=== PATIENT | male | born 1975 | race Hispanic/Latino ===

== ENCOUNTER 2021-03-07 01:20 | Emergency (ER) | payer BC, OTHER ==
[2021-03-07 02:03] LABS: Bilirubin Negative (Negative); Blood, Urine Negative (Negative); Clarity Clear (Clear); Glucose, Urine (Dipstick) Normal (Negative); Ketone, Urine Negative (Negative); Leukocyte Negative Leu/uL (Negative); Nitrite Negative (Negative); Protein, Urine (Dipstick) 20 mg/dL (Neg-Trace); Specific Gravity, Urine 1.031 (1.002-1.036); Urobilinogen Normal mg/dL (Less than 2); pH, Urine 5.5 (5.0-9.0)
[2021-03-07] MEDS ORDERED: Ondansetron PF 4 MG/2 ML Vial ONE ×2 (03:33→05:02)
[2021-03-07] MEDS ORDERED: Morphine 4 MG/ML VIAL ONE (03:33)
[2021-03-07 03:38] LABS: #Eosinphils 0.1 thou/uL (0.0-0.7); #Lymphocytes 1.5 thou/uL (1.20-3.40); #Monocytes 0.8 thou/uL (0.11-0.59); #Neutrophils 11.7 thou/uL (1.40-6.50); %Eosinophils 0.4 % (0.0-10.0); %Lymphocytes 10.9 % (21.0-51.0); %Monocytes 5.6 % (0.0-10.0); %Neutrophils 83.1 % (42.0-75.0); Hemoglobin 16.4 g/dL (14.0-18.0); Mean Corpuscular HGB CONC 33.5 g/dL (32.0-36.0); Mean Corpuscular Volume 92.6 fL (78.0-98.0); Mean Platelet Volume 7.8 fL (7.4-10.4); Platelet Count 191 thou/uL (130-400); RBC Distribution Width 12.7 % (11.5-14.5); White Blood Cell (WBC) Count 14.1 thou/uL (4.8-10.8)
[2021-03-07 04:00] LABS: ALT (SGPT) 100 U/L (8-55); AST (SGOT) 38 U/L (5-34); Albumin 4.7 g/dL (3.5-5.0); Alkaline Phosphatase 95 U/L (40-110); Anion Gap 18 mmol/L (10-20); BUN (Urea Nitrogen) 15 mg/dL (8.9-20.6); Calc. Creatinine Clearance 0 mL/min (70-130); Calcium 9.8 mg/dL (7.8-10.44); Carbon Dioxide 21 mmol/L (22-29); Chloride 104 mmol/L (98-107); Globulin 3.6 g/dL (2.4-3.5); Glucose 138 mg/dL (70-105); Potassium 4.1 mmol/L (3.5-5.1); Protein, Total 8.3 g/dL (6.0-8.3); Sodium 139 mmol/L (136-145)
[2021-03-07] MEDS ORDERED: Ketorolac Tromethamine 30 MG/ML VIAL ONE (04:49)
== END 2021-03-07 06:06 | disposition home or self-care (01) ==
LOC: ERS 01:20
DX: N13.2 Hydronephrosis with renal and ureteral calculous obstruction (principal); M10.9 Gout, unspecified
CPT/HCPCS: 36415; 74176; 80053; 81003; 85025; 96374; 96375; 96376; J1885; J2270; J2405

== ENCOUNTER 2022-05-25 07:30 | Outpatient (CLI) | payer BC | END 2022-05-25 07:31 | disposition home or self-care (01) | LOC: BICULT 07:30 | PROVIDERS: ATTEND Internal Medicine Rheumatology | DX: R74.8 Abnormal levels of other serum enzymes (principal); K76.0 Fatty (change of) liver, not elsewhere classified; K83.8 Other specified diseases of biliary tract; Z90.49 Acquired absence of other specified parts of digestive tract | CPT/HCPCS: 76705 ==

== ENCOUNTER 2023-10-18 06:01 | Inpatient (IN) | payer BC ==
[2023-10-18 06:30] LABS: #Eosinphils 0.1 thou/uL (0.0-0.7); #Monocytes 1.7 thou/uL (0.11-0.59); #Neutrophils 18.1 thou/uL (1.40-6.50); %Basophils 0.2 % (0.0-1.0); %Eosinophils 0.2 % (0.0-10.0); %Lymphocytes 9.4 % (21.0-51.0); %Monocytes 7.5 % (0.0-10.0); %Neutrophils 82.2 % (42.0-75.0); Hematocrit 48.1 % (42.0-52.0); Hemoglobin 17.1 g/dL (14.0-18.0); Mean Corpuscular HGB CONC 35.6 g/dL (32.0-36.0); Mean Corpuscular Hemoglobin 32.6 pg (27.0-31.0); Mean Corpuscular Volume 91.6 fl (78.0-98.0); Platelet Count 174 10x3/uL (130-400); RBC Distribution Width 13.7 % (11.5-14.5); Red Blood Cell (RBC) Count 5.25 mill/uL (4.70-6.10)
[2023-10-18] MEDS ORDERED: Acetaminophen 325 MG TAB ONE (06:47)
[2023-10-18] MEDS ORDERED: Piperacillin/Tazobactam 4.5 GM VIAL ONE (06:47)
[2023-10-18] MEDS ORDERED: Sodium Chloride 0.9% 100 ML ONE (06:47)
[2023-10-18] MEDS ORDERED: Ketorolac Tromethamine 30 MG (1 mL) VIAL ONE (06:47)
[2023-10-18 07:04] LABS: ALT (SGPT) 40 U/L (8-55); AST (SGOT) 21 U/L (5-34); Albumin 4.2 g/dL (3.5-5.0); Alkaline Phosphatase 53 U/L (40-110); Anion Gap 16 mmol/L (10-20); BUN (Urea Nitrogen) 13 mg/dL (8.9-20.6); Bilirubin, Total 3.1 mg/dL (0.2-1.2); Calc. Creatinine Clearance 0 mL/min (70-130); Calcium 9.7 mg/dL (7.8-10.44); Carbon Dioxide 21 mmol/L (22-29); Chloride 103 mmol/L (98-107); Estimated GFR 80; Globulin 3.9 g/dL (2.4-3.5); Glucose 103 mg/dL (70-105); Potassium 3.8 mmol/L (3.5-5.1); Protein, Total 8.1 g/dL (6.0-8.3); Sodium 136 mmol/L (136-145)
[2023-10-18] MEDS ORDERED: Acetaminophen 650 MG Suppository PR PRN (08:42)
[2023-10-18] MEDS ORDERED: Ondansetron PF 4 MG/2 ML Vial IVP PRN (08:42)
[2023-10-18] MEDS ORDERED: Ondansetron ODT 4 MG TAB PO PRN (08:42)
[2023-10-18 10:28] VITALS: BMI 33.0
[2023-10-18] MEDS ORDERED: Iopamidol-370 76% 500 ML MDV (1 ML CHARGE) ONE (11:15)
[2023-10-18] MEDS ORDERED: Morphine 2 MG/ML VIAL SLOW IVP PRN (12:30)
[2023-10-18] MEDS: Piperacillin/Tazobactam 3.375 GM in Sodium Chloride 0.9% 100 ML IVPB SCH (12:40)
[2023-10-18] MEDS: Enoxaparin 40 MG (0.4 mL) SYRINGE SC SCH (12:40)
[2023-10-18] MEDS: Acetaminophen 325 MG TAB PO PRN (12:41)
[2023-10-18] MEDS: Morphine 4 MG/ML VIAL SLOW IVP PRN (12:58)
[2023-10-18] MEDS ORDERED: Piperacillin/Tazobactam 4.5 GM in Sodium Chloride 0.9% 100 ML IVPB SCH (14:00)
[2023-10-19 04:33] LABS: #Basophils 0.1 thou/uL (0.0-0.2); #Eosinphils 0.1 thou/uL (0.0-0.7); #Monocytes 1.5 thou/uL (0.11-0.59); #Neutrophils 11.6 thou/uL (1.40-6.50); %Basophils 0.3 % (0.0-1.0); %Eosinophils 0.7 % (0.0-10.0); %Lymphocytes 19.5 % (21.0-51.0); %Monocytes 9.2 % (0.0-10.0); %Neutrophils 69.7 % (42.0-75.0); Hematocrit 41.7 % (42.0-52.0); Hemoglobin 14.8 g/dL (14.0-18.0); Mean Corpuscular HGB CONC 35.5 g/dL (32.0-36.0); Mean Corpuscular Hemoglobin 32.5 pg (27.0-31.0); Mean Corpuscular Volume 91.4 fl (78.0-98.0); Platelet Count 155 10x3/uL (130-400); RBC Distribution Width 13.5 % (11.5-14.5); Red Blood Cell (RBC) Count 4.56 mill/uL (4.70-6.10); White Blood Cell (WBC) Count 16.7 10x3/uL (4.8-10.8)
[2023-10-19 05:02] LABS: Anion Gap 13 mmol/L (10-20); BUN (Urea Nitrogen) 11 mg/dL (8.9-20.6); Calc. Creatinine Clearance 114 mL/min (70-130); Calcium 8.9 mg/dL (7.8-10.44); Carbon Dioxide 23 mmol/L (22-29); Chloride 102 mmol/L (98-107); Estimated GFR 78; Glucose 82 mg/dL (70-105); Potassium 3.4 mmol/L (3.5-5.1); Sodium 135 mmol/L (136-145)
[2023-10-19 10:16] LABS: ALT (SGPT) 27 U/L (8-55); AST (SGOT) 15 U/L (5-34); Albumin 3.7 g/dL (3.5-5.0); Alkaline Phosphatase 50 U/L (40-110); Bilirubin, Direct 0.9 mg/dL (0.1-0.3); Bilirubin, Total 2.4 mg/dL (0.2-1.2)
[2023-10-19] MEDS: NS 0.9% w/ 40 MEQ KCL 1,000 ML IV SCH (11:24)
[2023-10-20 08:40] VITALS: BP 128/86; TEMP 97.6
[2023-10-21] MEDS ORDERED: FLU VACC QS2023-24(6MOS UP)/PF 60 MCG/0.5 ML SYRINGE IM ONE (09:00)
== END 2023-10-20 14:46 | disposition home or self-care (01) | DRG 872 ==
LOC: SUATTDRO 06:01 → ERS 06:01 → T4-B 08:06
PROVIDERS: ADMIT Family Medicine; ATTEND Internal Medicine
DX: A41.9 Sepsis, unspecified organism (principal); K57.20 Diverticulitis of large intestine with perforation and abscess without bleeding; M10.9 Gout, unspecified; E87.6 Hypokalemia; R31.9 Hematuria, unspecified; N20.0 Calculus of kidney; Z90.49 Acquired absence of other specified parts of digestive tract; Z79.899 Other long term (current) drug therapy
CPT/HCPCS: 36415; 74177; 80048; 80053; 80076; 83605; 85025; 87040; 93005; 96374; 96375; J1650; J1885; J2270; J2543; J3480; J3490; Q9967

== ENCOUNTER 2023-10-21 20:53 | Inpatient (IN) | payer BC ==
[~2023-10-21 20:53] MED LIST: Albumin 5% 0 ML ONE
[2023-10-21] MEDS ORDERED: fentaNYL PF 100 MCG/2 ML SYRINGE ONE ×3 (21:14→22:39)
[2023-10-21] MEDS ORDERED: PROPOFOL 20 ML ONE (21:14)
[2023-10-21] MEDS ORDERED: Ondansetron PF 4 MG/2 ML Vial ONE (21:48)
[2023-10-21] MEDS ORDERED: Lidocaine 1% PF 5 ML VIAL ONE (21:48)
[2023-10-21] MEDS ORDERED: Rocuronium Bromide 10 MG/ML (10ML VIAL) ONE (21:48)
[2023-10-21] MEDS ORDERED: Dexamethasone 20 MG/5 ML VIAL ONE (21:48)
[2023-10-21] MEDS ORDERED: Sevoflurane 250 ML INH ANEST BOTTLE ONE ×2 (22:21→22:39)
[2023-10-22] MEDS ORDERED: HYDROmorphone 2 MG/ML VIAL ONE (00:22)
[2023-10-22] MEDS ORDERED: SUGAMMADEX SODIUM 200 MG/2 ML VIAL ONE ×2 (00:26)
[2023-10-22] MEDS ORDERED: Promethazine HCl 25 MG/ML VIAL IM PRN ×2 (01:21→01:23)
[2023-10-22] MEDS ORDERED: Naloxone HCl 0.4 mg/ml Vial IV PRN (01:21)
[2023-10-22] MEDS ORDERED: diphenhydrAMINE 25 MG CAP PO PRN (01:21)
[2023-10-22] MEDS ORDERED: HYDROmorphone/PF 10 MG in Sodium Chloride 0.9% 99 ML IV PRN (01:21)
[2023-10-22] MEDS ORDERED: diphenhydrAMINE 50 MG/ML VIAL IM PRN (01:21)
[2023-10-22] MEDS ORDERED: diphenhydrAMINE 50 MG/ML VIAL IVP PRN (01:21)
[2023-10-22] MEDS ORDERED: Ondansetron HCl/PF 4 MG/2 ML Vial IVP PRN (01:23)
[2023-10-22] MEDS ORDERED: HYDROmorphone 2 MG/ML VIAL SLOW IVP PRN (01:23)
[2023-10-22] MEDS ORDERED: Communication Order-Pharmacy FS SCH (01:30)
[2023-10-22] MEDS ORDERED: fentaNYL 50 mcg/mL 1 mL Vial ONE ×2 (01:34→01:47)
[2023-10-22] MEDS ORDERED: D5 1/2 NS w/20 mEq KCL 1,000 ML IV SCH (01:45)
[2023-10-22] MEDS ORDERED: HYDROmorphone 0.5 MG/0.5 ML SYRINGE ONE (02:01)
[2023-10-22] MEDS: Piperacillin/Tazobactam 4.5 GM in Sodium Chloride 0.9% 100 ML IVPB SCH ×2 (03:25→08:31)
[2023-10-22] MEDS: D5 1/2 NS w/20 mEq KCL 1,000 ML IV SCH (03:45)
[2023-10-22 05:05] VITALS: BMI 33.3
[2023-10-22] MEDS ORDERED: Piperacillin/Tazobactam 4.5 GM in Sodium Chloride 0.9% 100 ML IVPB SCH (06:00)
[2023-10-22 06:16] LABS: #Monocytes 0.8 thou/uL (0.11-0.59); #Neutrophils 12.8 thou/uL (1.40-6.50); %Basophils 0.2 % (0.0-1.0); %Lymphocytes 8.4 % (21.0-51.0); %Monocytes 5.4 % (0.0-10.0); %Neutrophils 85.7 % (42.0-75.0); Hematocrit 43.3 % (42.0-52.0); Hemoglobin 15.1 g/dL (14.0-18.0); Mean Corpuscular HGB CONC 34.9 g/dL (32.0-36.0); Mean Corpuscular Hemoglobin 32.1 pg (27.0-31.0); Mean Corpuscular Volume 92.1 fl (78.0-98.0); Mean Platelet Volume 10.1 fL (7.4-10.4); Platelet Count 240 10x3/uL (130-400); RBC Distribution Width 13.2 % (11.5-14.5); White Blood Cell (WBC) Count 14.9 10x3/uL (4.8-10.8)
[2023-10-22 06:50] LABS: ALT (SGPT) 46 U/L (8-55); AST (SGOT) 34 U/L (5-34); Albumin 3.7 g/dL (3.5-5.0); Alkaline Phosphatase 48 U/L (40-110); Anion Gap 14 mmol/L (10-20); BUN (Urea Nitrogen) 12 mg/dL (8.9-20.6); Bilirubin, Total 1.1 mg/dL (0.2-1.2); Calc. Creatinine Clearance 126 mL/min (70-130); Carbon Dioxide 20 mmol/L (22-29); Chloride 106 mmol/L (98-107); Estimated GFR 91; Globulin 3.3 g/dL (2.4-3.5); Glucose 132 mg/dL (70-105); Potassium 4.3 mmol/L (3.5-5.1); Sodium 136 mmol/L (136-145)
[2023-10-22] MEDS: Ketorolac Tromethamine 30 MG (1 mL) VIAL IVP SCH (07:37)
[2023-10-22] MEDS: Albumin 25% 25 GM (100 mL) BOT IVPB SCH (07:38)
[2023-10-22] MEDS: Acetaminophen 500 MG TAB PO SCH (08:31)
[2023-10-22] MEDS: Pantoprazole 40 MG VIAL IVP SCH (08:31)
[2023-10-22] MEDS: FLU VACC QS2023-24(6MOS UP)/PF 60 MCG/0.5 ML SYRINGE IM ONE (08:32)
[2023-10-22] MEDS: Ondansetron PF 4 MG/2 ML Vial IVP PRN (16:00)
[2023-10-22] MEDS: fentaNYL 50 mcg/mL 1 mL Vial SLOW IVP SCH (16:35)
[2023-10-22] MEDS: Enoxaparin 40 MG (0.4 mL) SYRINGE SC SCH (21:18)
[2023-10-23 07:10] LABS: #Basophils 0.1 thou/uL (0.0-0.2); #Monocytes 0.8 thou/uL (0.11-0.59); #Neutrophils 13.2 thou/uL (1.40-6.50); %Basophils 0.3 % (0.0-1.0); %Eosinophils 0.1 % (0.0-10.0); %Neutrophils 80.8 % (42.0-75.0); Hematocrit 38.6 % (42.0-52.0); Hemoglobin 13.4 g/dL (14.0-18.0); Mean Corpuscular HGB CONC 34.7 g/dL (32.0-36.0); Mean Corpuscular Hemoglobin 32.1 pg (27.0-31.0); Mean Corpuscular Volume 92.3 fl (78.0-98.0); Platelet Count 202 10x3/uL (130-400); RBC Distribution Width 13.4 % (11.5-14.5); Red Blood Cell (RBC) Count 4.18 mill/uL (4.70-6.10); White Blood Cell (WBC) Count 16.3 10x3/uL (4.8-10.8)
[2023-10-23] MEDS ORDERED: Famotidine 20 MG TAB PO PRN (15:51)
[2023-10-23] MEDS: D5 1/2 NS w/20 mEq KCL 1,000 ML IV SCH (18:08)
[2023-10-25] MEDS: Calcium Carbonate 500 MG ChewTAB PO SCH (01:58)
[2023-10-25] MEDS: hydrALAZINE 20 MG/ML VIAL SLOW IVP PRN (04:33)
[2023-10-25] MEDS: D5 1/2 NS w/20 mEq KCL 1,000 ML IV SCH (12:45)
[2023-10-26] MEDS ORDERED: Non-Formulary Item 1 EACH (Omeprazole [Omeprazole] 20 MG Tablet.Dr) PO SCH (09:00)
[2023-10-26] MEDS: Milk Of Magnesia 30 ML UDCUP PO PRN (10:42)
[2023-10-26 12:48] LABS: #Eosinphils 0.2 thou/uL (0.0-0.7); #Neutrophils 10.9 thou/uL (1.40-6.50); %Basophils 0.3 % (0.0-1.0); %Eosinophils 1.5 % (0.0-10.0); %Monocytes 6.7 % (0.0-10.0); Hematocrit 35.5 % (42.0-52.0); Hemoglobin 12.7 g/dL (14.0-18.0); Mean Corpuscular HGB CONC 35.8 g/dL (32.0-36.0); Mean Corpuscular Hemoglobin 32.8 pg (27.0-31.0); Mean Corpuscular Volume 91.7 fl (78.0-98.0); Mean Platelet Volume 9.6 fL (7.4-10.4); Platelet Count 274 10x3/uL (130-400); RBC Distribution Width 13.6 % (11.5-14.5); Red Blood Cell (RBC) Count 3.87 mill/uL (4.70-6.10); White Blood Cell (WBC) Count 14.3 10x3/uL (4.8-10.8)
[2023-10-26] MEDS ORDERED: Morphine 4 MG/ML VIAL SLOW IVP PRN ×2 (17:15)
[2023-10-26] MEDS: D5 1/2 NS w/20 mEq KCL 1,000 ML IV SCH (18:43)
[2023-10-27] MEDS: Ketorolac Tromethamine 30 MG (1 mL) VIAL IVP PRN (08:29)
[2023-10-27] MEDS: Pantoprazole 40 MG VIAL IVP SCH (08:30)
[2023-10-27] MEDS ORDERED: GASTROGRAFIN 30 ML BOT ONE (15:18)
[2023-10-27] MEDS ORDERED: Iopamidol-370 76% 500 ML MDV (1 ML CHARGE) ONE (15:18)
[2023-10-28] MEDS ORDERED: Ondansetron PF 4 MG/2 ML Vial IVP PRN (09:45)
[2023-10-28 10:13] LABS: #Basophils 0.1 thou/uL (0.0-0.2); #Eosinphils 0.1 thou/uL (0.0-0.7); #Monocytes 0.9 thou/uL (0.11-0.59); #Neutrophils 10.2 thou/uL (1.40-6.50); %Basophils 0.6 % (0.0-1.0); %Lymphocytes 19.1 % (21.0-51.0); %Monocytes 6.4 % (0.0-10.0); Hemoglobin 13.8 g/dL (14.0-18.0); Mean Corpuscular HGB CONC 32.9 g/dL (32.0-36.0); Mean Corpuscular Hemoglobin 31.9 pg (27.0-31.0); Mean Corpuscular Volume 97.2 fl (78.0-98.0); Mean Platelet Volume 9.8 fL (7.4-10.4); Platelet Count 285 10x3/uL (130-400); RBC Distribution Width 13.9 % (11.5-14.5); Red Blood Cell (RBC) Count 4.32 mill/uL (4.70-6.10); White Blood Cell (WBC) Count 14.1 10x3/uL (4.8-10.8)
[2023-10-28] MEDS: Metoclopramide HCl 10 MG (2 mL) VIAL IVP SCH (10:17)
[2023-10-28 10:39] LABS: Phosphorus 2.9 mg/dL (2.3-4.7)
[2023-10-28 10:41] LABS: ALT (SGPT) 70 U/L (8-55); AST (SGOT) 54 U/L (5-34); Albumin 3.9 g/dL (3.5-5.0); Alkaline Phosphatase 70 U/L (40-110); Anion Gap 11 mmol/L (10-20); BUN (Urea Nitrogen) 14 mg/dL (8.9-20.6); Bilirubin, Total 1.2 mg/dL (0.2-1.2); Calc. Creatinine Clearance 123 mL/min (70-130); Calcium 9.2 mg/dL (7.8-10.44); Carbon Dioxide 25 mmol/L (22-29); Chloride 105 mmol/L (98-107); Estimated GFR 87; Globulin 3.8 g/dL (2.4-3.5); Glucose 96 mg/dL (70-105); Magnesium 2.5 mg/dL (1.6-2.6); Potassium 3.9 mmol/L (3.5-5.1); Protein, Total 7.7 g/dL (6.0-8.3); Sodium 137 mmol/L (136-145)
[2023-10-29] MEDS: Diazepam 5 MG TAB PO SCH (11:24)
[2023-10-29] MEDS: Metoclopramide HCl 10 MG (2 mL) VIAL IVP PRN (11:24)
[2023-10-29] MEDS: Diazepam 5 MG TAB PO PRN (20:32)
[2023-10-30] MEDS: Prochlorperazine Maleate 5 MG TAB PO PRN (04:54)
[2023-10-30 05:16] LABS: #Eosinphils 0.1 thou/uL (0.0-0.7); #Monocytes 0.7 thou/uL (0.11-0.59); #Neutrophils 4.8 thou/uL (1.40-6.50); %Basophils 0.3 % (0.0-1.0); %Eosinophils 1.5 % (0.0-10.0); %Monocytes 8.8 % (0.0-10.0); %Neutrophils 59.6 % (42.0-75.0); Hematocrit 36.5 % (42.0-52.0); Hemoglobin 12.5 g/dL (14.0-18.0); Mean Corpuscular HGB CONC 34.2 g/dL (32.0-36.0); Mean Corpuscular Hemoglobin 31.7 pg (27.0-31.0); Mean Corpuscular Volume 92.6 fl (78.0-98.0); Mean Platelet Volume 10.1 fL (7.4-10.4); Platelet Count 316 10x3/uL (130-400); RBC Distribution Width 13.3 % (11.5-14.5); Red Blood Cell (RBC) Count 3.94 mill/uL (4.70-6.10)
[2023-10-30 05:43] LABS: ALT (SGPT) 145 U/L (8-55); AST (SGOT) 80 U/L (5-34); Albumin 3.8 g/dL (3.5-5.0); Alkaline Phosphatase 66 U/L (40-110); Anion Gap 10 mmol/L (10-20); BUN (Urea Nitrogen) 12 mg/dL (8.9-20.6); Bilirubin, Total 1.2 mg/dL (0.2-1.2); Calc. Creatinine Clearance 134 mL/min (70-130); Calcium 8.9 mg/dL (7.8-10.44); Carbon Dioxide 23 mmol/L (22-29); Chloride 105 mmol/L (98-107); Estimated GFR 98; Globulin 3.3 g/dL (2.4-3.5); Glucose 98 mg/dL (70-105); Magnesium 2.3 mg/dL (1.6-2.6); Phosphorus 3.3 mg/dL (2.3-4.7); Protein, Total 7.1 g/dL (6.0-8.3); Sodium 134 mmol/L (136-145)
[2023-10-30] MEDS: Metamucil PACK PO SCH (09:11)
[2023-10-30] MEDS: Simethicone Chewable 80 MG TAB PO PRN (18:16)
[2023-10-31 17:24] VITALS: BP 129/90; TEMP 98.5
== END 2023-10-31 18:00 | disposition home or self-care (01) | DRG 853 ==
LOC: ERS 20:53 → SDC/OP 21:48 → T4-B 10-22 01:22
PROVIDERS: ADMIT Specialist; ATTEND Specialist
PROC: 0FT44ZZ Resection of Gallbladder, Percutaneous Endoscopic Approach (ICD-10-PCS; principal; 2023-10-22)
PROC: 3E03329 Introduction of Other Anti-infective into Peripheral Vein, Percutaneous Approach (ICD-10-PCS; 2023-10-22)
PROC: 30233J1 Transfusion of Nonautologous Serum Albumin into Peripheral Vein, Percutaneous Approach (ICD-10-PCS; 2023-10-22)
DX: A41.9 Sepsis, unspecified organism (principal); K57.20 Diverticulitis of large intestine with perforation and abscess without bleeding; K65.9 Peritonitis, unspecified; K91.89 Other postprocedural complications and disorders of digestive system; K56.7 Ileus, unspecified; K21.9 Gastro-esophageal reflux disease without esophagitis; K43.2 Incisional hernia without obstruction or gangrene; Z98.890 Other specified postprocedural states; Z90.49 Acquired absence of other specified parts of digestive tract; Z93.2 Ileostomy status
CPT/HCPCS: 36415; 71045; 74018; 74019; 74177; 80053; 83735; 84100; 85025; 88307; 97139; A4314; A4649; C1713; C1751; C1776; C9113; J0360; J1100; J1170; J1642; J1650; J1885; J2405; J2543; J2704; J2765; J3010; J3480; J3490; P9045; P9047; Q0164; Q9963; Q9967

== ENCOUNTER 2024-01-16 11:40 | Outpatient (CLI) | payer BC | END 2024-01-16 11:41 | disposition home or self-care (01) | LOC: LABBT 11:40 | PROVIDERS: ATTEND Specialist | DX: Z01.812 Encounter for preprocedural laboratory examination (principal); K57.92 Diverticulitis of intestine, part unspecified, without perforation or abscess without bleeding | CPT/HCPCS: 80048; 85025 ==

== ENCOUNTER 2024-01-16 12:00 | Inpatient (IN) | payer BC ==
[2024-01-16 12:10] VITALS: BMI 27.3
[2024-01-17] MEDS ORDERED: Sodium Chloride 0.9% 100 ML ONE (11:35)
[2024-01-17] MEDS ORDERED: cefOXitin 2 GM VIAL ONE (11:35)
[2024-01-17] MEDS ORDERED: Lidocaine 1% MPF 2 ML VIAL ONE (11:35)
[2024-01-17] MEDS ORDERED: Ketorolac Tromethamine 30 MG (1 mL) VIAL ONE (11:35)
[2024-01-17] MEDS ORDERED: Midazolam HCl 2 mg/2 ml Vial ONE ×2 (12:17→13:46)
[2024-01-17] MEDS ORDERED: Bupivacaine 0.25% HCL 30 ML VIAL ONE (12:17)
[2024-01-17] MEDS ORDERED: fentaNYL 50 mcg/mL 1 mL Vial ONE ×2 (12:17→14:41)
[2024-01-17] MEDS ORDERED: EPINEPHrine 1 MG/ML VIAL ONE (12:56)
[2024-01-17] MEDS ORDERED: Bupivacaine PF 0.5% 30 ML VIAL ONE (12:56)
[2024-01-17] MEDS ORDERED: Rocuronium Bromide 10 MG/ML (10ML VIAL) ONE (13:36)
[2024-01-17] MEDS ORDERED: fentaNYL PF 100 MCG/2 ML SYRINGE ONE ×2 (13:36→15:21)
[2024-01-17] MEDS ORDERED: Lidocaine 2% PF 5 ML VIAL ONE (13:36)
[2024-01-17] MEDS ORDERED: Dexamethasone 4 mg/ml Vial ONE (13:36)
[2024-01-17] MEDS ORDERED: Ondansetron PF 4 MG/2 ML Vial ONE (13:36)
[2024-01-17] MEDS ORDERED: PROPOFOL 20 ML ONE (13:37)
[2024-01-17] MEDS ORDERED: Ondansetron HCl/PF 4 MG/2 ML Vial IVP PRN (14:05)
[2024-01-17] MEDS ORDERED: Promethazine HCl 25 MG/ML VIAL IM PRN (14:05)
[2024-01-17] MEDS ORDERED: HYDROmorphone 2 MG/ML VIAL SLOW IVP PRN (14:05)
[2024-01-17] MEDS ORDERED: Silver Nitrate Application 1 EACH ONE ×2 (14:26→15:03)
[2024-01-17] MEDS ORDERED: SUGAMMADEX SODIUM 200 MG/2 ML VIAL ONE (14:29)
[2024-01-17] MEDS ORDERED: Meperidine HCl/PF 25 MG (1 mL) VIAL ONE (14:58)
[2024-01-17] MEDS ORDERED: Ondansetron ODT 4 MG TAB PO PRN (15:08)
[2024-01-17] MEDS ORDERED: Morphine 4 MG/ML VIAL SLOW IVP PRN (15:08)
[2024-01-17] MEDS ORDERED: hydrALAZINE 20 MG/ML VIAL SLOW IVP PRN (15:08)
[2024-01-17] MEDS ORDERED: Morphine 2 MG/ML VIAL SLOW IVP PRN (15:08)
[2024-01-17] MEDS ORDERED: HYDROmorphone 0.5 MG/0.5 ML SYRINGE ONE (15:21)
[2024-01-17] MEDS: Acetaminophen 500 MG TAB PO SCH (18:37)
[2024-01-17] MEDS: Ketorolac Tromethamine 30 MG (1 mL) VIAL IVP SCH (18:39)
[2024-01-17] MEDS: D5 1/2 NS w/20 mEq KCL 1,000 ML IV SCH (18:39)
[2024-01-17] MEDS: Famotidine 20 MG TAB PO SCH (20:06)
[2024-01-17] MEDS: Enoxaparin 40 MG (0.4 mL) SYRINGE SC SCH (20:07)
[2024-01-18 05:02] LABS: #Basophils Less than 0.03 10x3/uL (0.0-0.2); #Eosinphils Less than 0.03 10x3/uL (0.0-0.7); %Basophils 0.1 % (0.0-1.0); %Lymphocytes 21.7 % (21.0-51.0); %Monocytes 6.1 % (0.0-10.0); %Neutrophils 71.8 % (42.0-75.0); Hematocrit 38.2 % (42.0-52.0); Hemoglobin 13.7 g/dL (14.0-18.0); Mean Corpuscular HGB CONC 35.9 g/dL (32.0-36.0); Mean Corpuscular Hemoglobin 30.2 pg (27.0-31.0); Mean Corpuscular Volume 84.1 fL (78.0-98.0); Mean Platelet Volume 10.2 fL (7.4-10.4); Platelet Count 178 10x3/uL (130-400); RBC Distribution Width 16.1 % (11.5-14.5); Red Blood Cell (RBC) Count 4.54 mill/uL (4.70-6.10)
[2024-01-18 05:30] LABS: Anion Gap 14 mmol/L (10-20); BUN (Urea Nitrogen) 10 mg/dL (8.9-20.6); Calc. Creatinine Clearance 117 mL/min (70-130); Calcium 8.5 mg/dL (7.8-10.44); Carbon Dioxide 21 mmol/L (22-29); Chloride 106 mmol/L (98-107); Estimated GFR 104; Glucose 117 mg/dL (70-105); Potassium 3.3 mmol/L (3.5-5.1); Sodium 138 mmol/L (136-145)
[2024-01-18] MEDS: Potassium Chloride 20 MEQ TAB PO SCH (06:38)
[2024-01-18] MEDS: Colchicine 0.6 MG TAB PO PRN (11:43)
[2024-01-18] MEDS: Allopurinol 100 MG TAB PO SCH (11:43)
[2024-01-18] MEDS: Ondansetron PF 4 MG/2 ML Vial IVP PRN (19:20)
[2024-01-18] MEDS: Promethazine HCl 25 MG/ML VIAL IM SCH (21:34)
[2024-01-18] MEDS: Ibuprofen 600 MG TAB PO PRN (22:47)
[2024-01-19 06:12] LABS: Anion Gap 15 mmol/L (10-20); BUN (Urea Nitrogen) 7 mg/dL (8.9-20.6); Calc. Creatinine Clearance 129 mL/min (70-130); Calcium 8.6 mg/dL (7.8-10.44); Carbon Dioxide 20 mmol/L (22-29); Chloride 108 mmol/L (98-107); Estimated GFR 107; Glucose 86 mg/dL (70-105); Sodium 140 mmol/L (136-145)
[2024-01-19] MEDS: Allopurinol 100 MG TAB PO SCH (09:18)
[2024-01-19] MEDS: Potassium Chloride 20 MEQ TAB PO SCH ×2 (09:18→10:37)
[2024-01-19] MEDS: Lactated Ringer's 1,000 ML IV SCH (10:37)
[2024-01-20] MEDS: traMADol HCl 50 MG TAB PO PRN (07:03)
[2024-01-20] MEDS: Ibuprofen 600 MG TAB PO SCH (10:39)
[2024-01-20] MEDS ORDERED: Ibuprofen 600 MG TAB PO PRN (11:12)
[2024-01-20 12:36] VITALS: BP 125/80; TEMP 98.1
== END 2024-01-20 13:10 | disposition home or self-care (01) | DRG 330 ==
LOC: SURG A 01-17 09:54 → SJJU 01-17 16:35
PROVIDERS: ADMIT Specialist; ATTEND Specialist
PROC: 0DBB0ZZ Excision of Ileum, Open Approach (ICD-10-PCS; principal; 2024-01-17)
PROC: 3E033XZ Introduction of Vasopressor into Peripheral Vein, Percutaneous Approach (ICD-10-PCS; 2024-01-17)
DX: Z43.2 Encounter for attention to ileostomy (principal); L02.211 Cutaneous abscess of abdominal wall; R11.2 Nausea with vomiting, unspecified; Z90.49 Acquired absence of other specified parts of digestive tract; Z98.890 Other specified postprocedural states; T81.31XD Disruption of external operation (surgical) wound, not elsewhere classified, subsequent encounter
CPT/HCPCS: 36415; 80048; 85025; 99213; A4314; A4649; G0463; J0171; J0665; J0694; J1100; J1170; J1650; J1885; J2001; J2175; J2250; J2405; J2550; J2704; J3010; J3480; J3490; J7120